=== PATIENT | female | born 1985 | race Caucasian/White ===

== ENCOUNTER 2017-11-24 16:14 | Emergency (ER) | payer OTHER ==
[2017-11-24 16:25] VITALS: BP 101/73; PULSE 69; RESP 18; TEMP 97.7
[2017-11-24] MEDS ORDERED: GELATIN SPONGE,ABSORB (LARGE) 1 EACH SPONGE TOPICAL STA (17:02)
--- NOTE | 2017-11-24 17:14 | ED ---
General Adult HPI - General Chief complaint: Extremity Injury, Lower Stated complaint: vein problems Time Seen by Provider: 11/24/17 16:32 Source: patient, EMS Mode of arrival: EMS Limitations: no limitations - History of Present Illness Initial comments: 32-year-old female presents to the emergency department from [facility] for bleeding varicose vein. Patient states about 2 hours ago she pulled a Band-Aid off of the varicose vein and a scab came off as well. Patient states she could not get it to stop bleeding. She states that since she has been in the emergency department bleeding has subsided. Patient denies any fevers at home. She denies any chills. She denies any spreading or streaking redness or evidence of infection. Patient states she is seeing wound care for another area on her leg but she does not want uncover at this time. She states this area is healing and she is not here to have this evaluated. Patient states her tetanus is up-to-date.Patient has no other complaints at this time including shortness of breath, chest pain, abdominal pain, nausea or vomiting, headache, or visual changes. - Related Data Allergies Allergy/AdvReac Type Severity Reaction Status Date / Time No Known Allergies Allergy Verified 11/24/17 16:25 Review of Systems ROS Statement: Those systems with pertinent positive or pertinent negative responses have been documented in the HPI. ROS Other: All systems not noted in ROS Statement are negative. Past Medical History Past Medical History: Thyroid Disorder Additional Past Medical History / Comment(s): carpal tunnel, endocarditis History of Any Multi-Drug Resistant Organisms: None Reported Past Surgical History: Appendectomy Past Psychological History: Anxiety, Bipolar, Depression, PTSD Smoking Status: Current every day smoker Past Alcohol Use History: None Reported Past Drug Use History: None Reported General Exam Limitations: no limitations General appearance: alert, in no apparent distress Head exam: Present: atraumatic, normocephalic, normal inspection Eye exam: Present: normal appearance, PERRL, EOMI. Absent: scleral icterus, conjunctival injection, periorbital swelling ENT exam: Present: normal exam, mucous membranes moist Neck exam: Present: normal inspection, full ROM. Absent: tenderness, meningismus, lymphadenopathy Respiratory exam: Present: normal lung sounds bilaterally. Absent: respiratory distress, wheezes, rales, rhonchi, stridor Cardiovascular Exam: Present: regular rate, normal rhythm, normal heart sounds. Absent: systolic murmur, diastolic murmur, rubs, gallop, clicks GI/Abdominal exam: Present: soft, normal bowel sounds. Absent: distended, tenderness, guarding, rebound, rigid Extremities exam: Present: full ROM (Full range of motion in the right lower leg ), tenderness (No tenderness in the right lower leg), normal capillary refill ( Capillary refill less than 2 seconds and DP pulse 2+ in the right lower extremity), other (Patient has a small 0.5 x 0.5 cm wound on the right anterior lower leg. Wound is currently not bleeding at all. No evidence of infection such as spreading or streaking redness or drainage from the wound. Patient is able to walk around the emergency department without wound bleeding.). Absent: joint swelling, calf tenderness (No edema, erythema, pain in the calf. Negative Homans sign. No evidence of DVT.) Neurological exam: Present: alert, oriented X3, CN II-XII intact Psychiatric exam: Present: normal affect, normal mood Course Vital Signs 11/24/17 16:22 Temperature 97.7 F Pulse Rate 69 Respiratory 18 Rate Blood Pressure 101/73 O2 Sat by Pulse 100 Oximetry Medical Decision Making - Medical Decision Making 32-year-old female since to the emergency determine for a chief complaint of bleeding varicose vein in the right lower leg 2 hours. Patient states that at this time the bleeding has resolved. Patient states she sees wound care for other wounds but is not here to have these evaluated. Her temperature here is 97.7 and patient is afebrile. Vitals are stable. On exam patient has a small 0.5 cm x 0.5 cm healing wound on the right lower extremity over a vein. Bleeding is controlled at this time. Patient is able to walk around the emergency department without any bleeding starting. However, Gelfoam was applied to prevent this from bleeding again after the wound was cleaned thoroughly with saline. This was then bandaged. Patient will follow up with wound care. She will return if she has any worsening symptoms or worsening bleeding. Disposition Clinical Impression: Varicose vein of leg Disposition: HOME SELF-CARE Condition: Good Instructions: Acute Wound Care (ED) Additional Instructions: Please keep the area clean and bandaged. Follow up with wound care in 1-2 days. Return to the emergency department if you have any worsening symptoms. Is patient prescribed a controlled substance at d/c from ED?: No Referrals: Nonstaff,Physician [Primary Care Provider] - 1-2 days Time of Disposition: 17:13
== END 2017-11-24 17:48 | disposition home or self-care (01) ==
LOC: EC 16:14
DX: I83.91 Asymptomatic varicose veins of right lower extremity (principal); F17.200 Nicotine dependence, unspecified, uncomplicated
CPT/HCPCS: 99283